=== PATIENT | female | born 1975 | race Caucasian/White ===

== ENCOUNTER → 2017-06-18 08:38 | Outpatient (CLI) | payer BC, SELFPAY | PROVIDERS: Family Provider Family Medicine; PCP Family Medicine; Visit Provider Family Medicine | DX: F32.9 Major depressive disorder, single episode, unspecified (principal) | CPT/HCPCS: 36415; 84443 ==

== ENCOUNTER → 2019-08-10 10:26 | Outpatient (CLI) | payer BC, SELFPAY | PROVIDERS: PCP Family Medicine; Referring Provider Family Medicine; Visit Provider Family Medicine | DX: L02.91 Cutaneous abscess, unspecified (principal) | CPT/HCPCS: 87070; 87077; 87186; 87205 ==

== ENCOUNTER 2019-08-19 13:22 | Emergency (ER) | payer BC, SELFPAY ==
[2019-08-19 13:23] VITALS: BP 158/102; PULSE 116; RESP 18; TEMP 36.9; O2SAT 98; BMI 42.9
--- NOTE | 2019-08-19 14:08 | ED.DCSUM_ITS ---
History of Present Illness Chief Complaint: Allergic Reaction Narrative: Patient presenting secondary to a medication reaction. Patient had a axillary abscess incised and drained in the outpatient office. She was on doxycycline initially, and saw little improvement. Patient was started on Bactrim and Keflex 9 days ago. Patient states that around 2 days ago she started to develop a mild itchy red rash. She discontinued her Bactrim, but developed a confluent rash over her entire body that is itchy. Patient denies any lip or tongue swelling or shortness of breath. Patient took 2 Benadryl prior to arrival. Past Medical History - Allergies and Home Meds Allergies/Adverse Reactions: Allergies sulfamethoxazole [From Bactrim] Allergy (Verified 08/19/19 13:25) Rash trimethoprim [From Bactrim] Allergy (Verified 08/19/19 13:25) Rash Primary Care Physician: Sergio Samaniego MD [Primary Care Provider] - Prior records reviewed: Yes Past Medical History: None Lives: With Family Alcohol: None Drugs: None Review of Systems All systems negative except as indicated General: Denies: Chills, Fever, Sweats Eyes: Denies: Visual changes - bilaterally, Diplopia ENT: Denies: Rhinorrhea, Sore throat Cardiovascular: Denies: Chest pain, Palpitations Respiratory: Denies: Dyspnea, Cough, Dyspnea on exertion Gastrointestinal: Denies: Abdominal pain, Nausea, Vomiting, Diarrhea, Melena, Hematochezia Genitourinary: Denies: Dysuria, Hematuria, Frequency Musculoskeletal: Denies: Back pain, Extremity Pain Skin: Reports: Rash Neurological: Denies: Headache, Weakness, Numbness Physical Exam Vital Signs/Narrative: Vital Signs Temp Pulse Resp BP Pulse Ox 08/19/19 13:23 98.4 F 116 H 18 158/102 H 98 Inital Vital Signs reviewed: Yes General: Well nourished, Well developed, No Acute Distress Head: Normocephalic, Atraumatic Eyes: Perrl, EOMI ENT: Moist mucous membranes, No rhinorrhea, - - No evidence of lip or tongue swelling Neck: Supple, Nontender Cardiovascular: Regular rhythm, No murmurs, Tachycardia Respiratory: No distress, CTA bilaterally, Chest nontender Abdomen: Soft, Nontender, Nondistended, Normal bowel sounds Back: Nontender, Normal Inspection Extremities: Nontender, No edema Skin: Normal color, Rash - [place] erythematous rash of the chest back arms and legs, this is blanching and nonpalpable. Erythema multiforme Neurological: Alert, Oriented x3, Cranial nerves II-XII grossly intact, Normal Strength, Normal Sensation Psychological: Normal affect, Normal Mood Diagnostic/Tx/Re-eval - Medical Decision Making Laboratory Data 08/19/19 08/19/19 14:05 14:05 WBC 3.8 L RBC 4.79 Hgb 14.2 Hct 42.3 MCV 88.3 MCH 29.6 MCHC 33.6 RDW Std Deviation 42.4 RDW Coeff of [place] 13.2 Plt Count 216 MPV 11.3 Immature Gran % (Auto) 0.500 Neut % (Auto) 60.7 Lymph % (Auto) 28.0 [place] % (Auto) 2.9 Eos % (Auto) 7.6 H Baso % (Auto) 0.3 Absolute Neuts (auto) 2.3 Absolute Lymphs (auto) 1.07 Nucleated RBC % 0 Differential Comment SCANNED Reactive Lymphocytes 1+ Sodium 134 L Potassium 3.3 L Chloride 102 Carbon Dioxide 23.0 Anion Gap 9 BUN 9 Creatinine 0.71 Estim Creat Clear Calc 92.88 Est GFR (MDRD) Af Amer 115 Est GFR (MDRD) Non-Af 95 BUN/Creatinine Ratio 12.7 Glucose 130 H Calcium 8.7 Total Bilirubin 0.40 AST 91 H ALT 121 H Alkaline Phosphatase 107 Total Protein 7.9 Albumin 3.6 Globulin 4.3 H Albumin/Globulin Ratio 0.8 L Patient presented secondary to a drug rash. IV was established patient was given fluids. She already took Benadryl prior to arrival. Patient had improvement of her rash while she was in the emergency department. CBC demonstrates mild leukocyte suppression, but no evidence of pancytopenia. Chemistries showed normal renal function, and modestly elevated AST and ALT likely still nonspecific and not indicative of hepatitis. Patient is having improvement of her drug rash. I do not believe that she requires admission or further observation. She will follow-up with primary care for her lab tests. She states that her abscess is significantly improving, I do not feel that she requires restarted on a medication to cover MRSA, she was recommended to finish her course of Keflex. Patient was discharged in stable condition. ED Disposition - Plan for ED Patient: Disposition: Home or Assisted Living Instructions: ED ADVERSE DRUG REACTION Allergic Referrals: Sergio Samaniego MD [Primary Care Provider] - 3-5 Days
[2019-08-19 14:18] LABS: Absolute Lymphocyte Count 1.07 X10^3/uL (0.83-4.51); Absolute Neutrophil Count 2.3 X10^3/uL (2.0-7.7); Basophil# 0.01 X10^3/uL; Basophil% 0.3 % (0-1); Eosinophil# 0.29 X10^3/uL; Eosinophils% 7.6 % (0-5); Hematocrit 42.3 % (37-47); Hemoglobin 14.2 g/dL (12.0-15.0); Lymphocyte # 1.07 X10^3/ul (4.0); Mean Corp Hgb Conc 33.6 g/dL (32-36); Mean Corpuscular Hgb 29.6 pg (27.0-32.0); Mean Corpuscular Volume 88.3 fL (81-99); Mean Platelet Vol. 11.3 fl (6.2-12.0); Monocyte# 0.11 X10^3/uL; Monocyte% 2.9 % (0-10); NRBC Flagged by Analyzer 0 % (0-5); Neutrophil # 2.32 X10^3/uL (2.7-7.7); Neutrophil % 60.7 % (47-70); POSITIVE MORPHOLOGY YES; Platelet Count 216 K/mm3 (150-450); RBC Distribution Width CV 13.2 % (11.6-14.6); RBC Distribution Width SD 42.4 fl (35.1-43.9); Red Blood Count 4.79 M/mm3 (4.2-5.4); White Blood Count 3.8 K/mm3 (4.4-11.0)
[2019-08-19] MEDS: 0.9% Normal Saline 1,000 ML 1000 ML IV (14:19)
[2019-08-19 14:31] LABS: Differential Indicated SCAN CRITERIA MET
[2019-08-19 14:33] LABS: ALB/GLOB Ratio 0.8 RATIO (0.9-2.4); AST(SGOT) 91 U/L (15-37); Alanine Aminotransfer ALT/SGPT 121 U/L (13-56); Albumin, Serum 3.6 g/dL (3.2-5.0); Alkaline Phosphatase 107 U/L (45-117); Anion Gap 9 (5-15); BUN 9 mg/dL (7-18); BUN/Creat Ratio 12.7 RATIO (10-20); Calcium,Total 8.7 mg/dL (8.5-10.1); Chloride 102 mmol/L (98-107); Creatinine, Serum 0.71 mg/dL (0.55-1.02); EST Glomerular Filtration Rate 95 mL/min (>60); Est Glom Filt Rate - Afr Amer 115 mL/min (>60); Estimated Creatinine Clearance 92.88 ml/min; Globulin 4.3 g/dL (2.2-4.2); Glucose 130 mg/dL (74-106); Potassium 3.3 mmol/L (3.5-5.1); Protein, Total 7.9 g/dL (6.4-8.2); Sodium Level 134 mmol/L (136-145)
[2019-08-19 14:46] LABS: Differential Comment SCANNED
[2019-08-19 14:47] LABS: Reactive Lymphocyte 1+
== END 2019-08-19 15:55 | disposition home or self-care (01) ==
PROVIDERS: Emergency Provider Emergency Medicine; PCP Family Medicine
DX: R21 Rash and other nonspecific skin eruption (principal); T50.905A Adverse effect of unspecified drugs, medicaments and biological substances, initial encounter
CPT/HCPCS: 80053; 85025; 96360; 96361; 99284; J7030

== ENCOUNTER → 2019-10-21 08:29 | Outpatient (CLI) | payer BC, SELFPAY | PROVIDERS: PCP Family Medicine; Referring Provider Family Medicine; Visit Provider Family Medicine | DX: L65.9 Nonscarring hair loss, unspecified (principal) | CPT/HCPCS: 36415; 84443 ==

== ENCOUNTER → 2019-11-08 16:33 | Outpatient (CLI) | payer BC, SELFPAY | PROVIDERS: PCP Family Medicine; Visit Provider Family Medicine | DX: Z20.828 Contact with and (suspected) exposure to other viral communicable diseases (principal) | CPT/HCPCS: 87635; U0003 ==

== ENCOUNTER → 2020-01-10 20:39 | Outpatient (CLI) | payer BC, SELFPAY | PROVIDERS: PCP Family Medicine; Visit Provider Family Medicine | DX: Z20.828 Contact with and (suspected) exposure to other viral communicable diseases (principal) | CPT/HCPCS: 87635; U0003 ==

== ENCOUNTER → 2020-01-14 15:58 | Outpatient (CLI) | payer BC, SELFPAY | PROVIDERS: PCP Family Medicine; Referring Provider Family Medicine; Visit Provider Family Medicine | DX: Z20.828 Contact with and (suspected) exposure to other viral communicable diseases (principal) | CPT/HCPCS: 87635; U0003 ==

== ENCOUNTER → 2020-05-22 08:21 | Outpatient (CLI) | payer BC, SELFPAY ==
[2020-05-22 10:23] LABS: Anion Gap 6 (5-15); BUN 10 mg/dL (7-18); BUN/Creat Ratio 15.5 RATIO (10-20); Calcium,Total 8.8 mg/dL (8.5-10.1); Chloride 108 mmol/L (98-107); Cholesterol 170 mg/dL (200); Creatinine, Serum 0.65 mg/dL (0.55-1.02); EST Glomerular Filtration Rate 106 mL/min (>60); Est Glom Filt Rate - Afr Amer 128 mL/min (>60); Glucose 141 mg/dL (74-106); High Density Lipoprotein 35 mg/dL; Potassium 4.4 mmol/L (3.5-5.1); Sodium Level 139 mmol/L (136-145); Triglycerides 102 mg/dL; Very Low Density Lipoprotein 20 mg/dL (5-40)
== END ==
PROVIDERS: PCP Family Medicine; Visit Provider Family Medicine
DX: R03.0 Elevated blood-pressure reading, without diagnosis of hypertension (principal)
CPT/HCPCS: 36415; 80048; 80061

== ENCOUNTER → 2020-12-22 08:11 | Outpatient (CLI) | payer BC, SELFPAY ==
[2020-12-22 10:27] LABS: Anion Gap 5 (5-15); BUN 10 mg/dL (7-18); BUN/Creat Ratio 13.9 RATIO (10-20); Calcium,Total 9.2 mg/dL (8.5-10.1); Chloride 107 mmol/L (98-107); Cholesterol 162 mg/dL (200); Creatinine, Serum 0.72 mg/dL (0.55-1.02); EST Glomerular Filtration Rate 94 mL/min (>60); Est Glom Filt Rate - Afr Amer 113 mL/min (>60); Glucose 140 mg/dL (74-106); High Density Lipoprotein 37 mg/dL; Potassium 4.1 mmol/L (3.5-5.1); Sodium Level 139 mmol/L (136-145); Triglycerides 100 mg/dL; Very Low Density Lipoprotein 20 mg/dL (5-40)
[2020-12-22 10:31] LABS: Hemoglobin A1c 6.9 % (3.8-5.6)
[2020-12-22 13:02] LABS: Microalbumin,Random Urine 17.7 mg/L (NO RANGE EST.)
== END ==
PROVIDERS: PCP Family Medicine; Referring Provider Family Medicine; Visit Provider Family Medicine
DX: E11.9 Type 2 diabetes mellitus without complications (principal)
CPT/HCPCS: 36415; 80048; 80061; 82043; 82570; 83036

== ENCOUNTER → 2021-08-30 | Outpatient (CLI) | payer BC, SELFPAY ==
[2021-08-30 10:18] LABS: Anion Gap 8 (5-15); BUN 10 mg/dL (7-18); BUN/Creat Ratio 13.9 RATIO (10-20); Calcium,Total 9.1 mg/dL (8.5-10.1); Chloride 105 mmol/L (98-107); Cholesterol 171 mg/dL (200); Creatinine, Serum 0.72 mg/dL (0.55-1.02); EST Glomerular Filtration Rate 93 mL/min (>60); Est Glom Filt Rate - Afr Amer 113 mL/min (>60); Glucose 173 mg/dL (74-106); High Density Lipoprotein 32 mg/dL; Potassium 3.8 mmol/L (3.5-5.1); Sodium Level 136 mmol/L (136-145); Triglycerides 104 mg/dL; Very Low Density Lipoprotein 21 mg/dL (5-40)
[2021-08-30 10:37] LABS: Microalbumin,Random Urine 59.2 mg/L (NO RANGE EST.); Microalbumin:Creatinine Ratio 16.2 mg/g CRE (<30 mg/g CRE)
== END | disposition home or self-care (01) ==
LOC: MFPLAB 07:42
PROVIDERS: PCP Family Medicine; Referring Provider Family Medicine; Visit Provider Family Medicine
DX: E11.9 Type 2 diabetes mellitus without complications (principal)
CPT/HCPCS: 36415; 80048; 80061; 82043; 82570

== ENCOUNTER → 2022-06-14 | Outpatient (CLI) | payer BC, SELFPAY ==
[2022-06-21 11:08] LABS: HPV APTIMA, High Risk Negative (Negative)
== END | disposition home or self-care (01) ==
LOC: LABSPEC 10:16
PROVIDERS: PCP Family Medicine; Referring Provider Family Medicine; Visit Provider Family Medicine
DX: Z12.4 Encounter for screening for malignant neoplasm of cervix (principal)
CPT/HCPCS: 87624; 88175; G0145

== ENCOUNTER → 2022-06-25 | Outpatient (CLI) | payer BC, SELFPAY | END | disposition home or self-care (01) | LOC: US 14:51 | PROVIDERS: PCP Family Medicine; Referring Provider Obstetrics & Gynecology; Visit Provider Obstetrics & Gynecology | DX: N89.8 Other specified noninflammatory disorders of vagina (principal) | CPT/HCPCS: 87070; 87205 ==

== ENCOUNTER → 2022-07-01 | Outpatient (CLI) | payer BC, SELFPAY ==
--- NOTE | 2022-07-01 15:40 | US_ITS ---
INDICATION: pelvic pain EXAMINATION: Ultrasound US Pelvis Non OB Complete With Transvaginal Imaging TECHNIQUE: Transabdominal and transvaginal pelvic ultrasound was performed. Grayscale, spectral waveform, and color flow Doppler evaluation of the adnexa. COMPARISON: None. FINDINGS: UTERUS: Anteverted. The uterus measures 8.2 x 4.7 x 3.2 cm. There is no uterine mass. The endometrial stripe measures 5 mm in AP diameter which is within normal limits.. Multiple small nabothian cysts. Trace anechoic fluid within the endocervical canal. RIGHT OVARY: 2.4 x 1.7 x 1.7 cm. Normal parenchymal appearance.. Preserved Doppler vascular flow. LEFT OVARY: 2.2 x 1.2 x 1.0 cm. Normal parenchymal appearance.. Preserved Doppler vascular flow. FREE FLUID: None. BLADDER: Anechoic without focal wall thickening or internal debris. Prevoid volume 230 mL. FINDINGS: UTERUS: Anteverted. The uterus measures 8.2 x 4.7 x 3.2 cm. There is no uterine mass. The endometrial stripe measures 5 mm in AP diameter which is within normal limits.. Multiple small nabothian cysts. Trace anechoic fluid within the endocervical canal. US/Pelvic (Non ) IMPRESSION: Unremarkable endometrial and myometrial appearance for age. Trace endocervical canal fluid which is commonly physiologic. Small cervical nabothian cysts. Normal ovaries. Electronically Signed: Anupam Waterman MD at 10:34 EDT ,
== END | disposition home or self-care (01) ==
PROVIDERS: PCP Family Medicine; Referring Provider Obstetrics & Gynecology; Visit Provider Obstetrics & Gynecology
DX: R10.2 Pelvic and perineal pain (principal)
CPT/HCPCS: 76830; 76856; 93976